=== PATIENT | male | born 1985 | race Caucasian/White ===

== ENCOUNTER 2023-08-24 10:10 | Outpatient (OUT) | payer MEDICARE, SELFPAY ==
[2023-08-24 10:57] LABS: Basophils Absolute Auto 0.1 10^3/uL (0.0-0.1); Basophils Percent Auto 1.5 % (0.2-2.0); Eosinophils Absolute Auto 0.4 10^3/uL (0.0-0.7); Eosinophils Percent Auto 6.1 % (0.9-7.0); Hematocrit 41.9 % (42.0-54.0); Hemoglobin 13.2 g/dL (14.0-18.0); Immature Granulocytes Abs Auto 0.03 10^3/uL (0.00-0.03); Immature Granulocytes Pct Auto 0.4 % (0.0-0.5); Lymphocytes Absolute Auto 1.5 10^3/uL (1.2-3.8); Lymphocytes Percent Auto 22.2 % (20.5-60.0); Mean Corpuscular HGB Conc 31.5 g/dL (29.9-35.2); Mean Corpuscular Hemoglobin 26.4 pg (25.9-34.0); Mean Corpuscular Volume 83.8 fL (80.0-94.0); Mean Platelet Volume 10.2 fL (9.5-13.5); Monocytes Absolute Auto 0.8 10^3/uL (0.3-0.8); Monocytes Percent Auto 11.9 % (1.7-12.0); Neutrophils Absolute Auto 3.9 10^3/uL (1.4-6.5); Neutrophils Percent Auto 57.9 % (43.0-75.0); Platelet Count 274 10^3/uL (150-450); White Blood Count 6.7 10^3/uL (4.0-11.0)
[2023-08-24 11:13] LABS: Anion Gap 11.5; BUN Creatinine Ratio 19.8; Calcium 8.7 mg/dL (8.5-10.1); Carbon Dioxide 28.2 mmol/L (21.0-32.0); Chloride 103 mmol/L (98-107); Estimated GFR (African America >60 (>=60); Estimated GFR (Non-African Ame >60 (>=60); Glucose 91 mg/dL (74-106); Potassium 3.7 mmol/L (3.5-5.1); Sodium 139 mmol/L (136-145)
== END 2023-08-24 10:11 | disposition home or self-care (01) ==
LOC: PST 10:14
PROVIDERS: Visit Provider Urology
DX: N35.812 Other bulbous urethral stricture, male (principal)
CPT/HCPCS: 36415; 80048; 85025

== ENCOUNTER 2023-09-02 11:36 | Day surgery (SDC) | payer MEDICARE, SELFPAY ==
[2023-08-24 10:39] VITALS: BP 122/80; PULSE 94; RESP 14; TEMP 36.2; O2SAT 100; BMI 19.2
[2023-09-02] VITALS (10 sets, daily range): BP systolic 110–134; BP diastolic 71–81; PULSE 57–90; RESP 7–18; TEMP 36.2–36.6; O2SAT 99–100
--- NOTE | 2023-09-02 12:16 | PC.NURSE ---
Took cota catheter out approximately 1 hour before arrival to hospital per Dr. Matias's instructions
[2023-09-02] MEDS: LACTATED RINGER'S SOLUTION 1,000 ML 50 ML IV (12:17)
[2023-09-02] MEDS: CEFAZOLIN SODIUM/DEXTROSE,ISO 2 GM/50 ML PIGGYBACK IV (12:47)
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
== END 2023-09-02 15:21 | disposition home or self-care (01) ==
PROVIDERS: Visit Provider Urology
PROC: (CPT 0499T; principal; 2023-09-02 12:30)
DX: N35.912 Unspecified bulbous urethral stricture, male (principal); G82.20 Paraplegia, unspecified; J45.909 Unspecified asthma, uncomplicated; F32.A Depression, unspecified; N52.9 Male erectile dysfunction, unspecified; N21.0 Calculus in bladder; Z87.440 Personal history of urinary (tract) infections; Z87.891 Personal history of nicotine dependence; Z99.3 Dependence on wheelchair; N31.9 Neuromuscular dysfunction of bladder, unspecified; N13.30 Unspecified hydronephrosis; N50.3 Cyst of epididymis; N32.89 Other specified disorders of bladder
CPT/HCPCS: 0499T; 52317; 36415; C1889; J2704

== ENCOUNTER 2025-04-24 14:04 | Outpatient (OUT) | payer MEDICARE, SELFPAY ==
[2025-04-24 14:31] LABS: Basophils Absolute Auto 0.1 10^3/uL (0.0-0.1); Basophils Percent Auto 0.8 % (0.2-2.0); Eosinophils Absolute Auto 0.2 10^3/uL (0.0-0.7); Eosinophils Percent Auto 2.3 % (0.9-7.0); Hematocrit 42.9 % (42.0-54.0); Immature Granulocytes Abs Auto 0.03 10^3/uL (0.00-0.03); Immature Granulocytes Pct Auto 0.5 % (0.0-0.5); Lymphocytes Absolute Auto 1.4 10^3/uL (1.2-3.8); Lymphocytes Percent Auto 21.2 % (20.5-60.0); Mean Corpuscular HGB Conc 32.6 g/dL (29.9-35.2); Mean Corpuscular Volume 82.7 fL (80.0-94.0); Mean Platelet Volume 9.4 fL (9.5-13.5); Monocytes Absolute Auto 0.7 10^3/uL (0.3-0.8); Neutrophils Absolute Auto 4.3 10^3/uL (1.4-6.5); Neutrophils Percent Auto 64.2 % (43.0-75.0); Platelet Count 407 10^3/uL (150-450); Red Blood Count 5.19 10^6/uL (4.70-6.10); Red Cell Distribution Width 13.4 % (11.0-15.0); White Blood Count 6.7 10^3/uL (4.0-11.0)
[2025-04-24 15:06] LABS: Alanine Aminotransferase 26 U/L (16-63); Albumin Globulin Ratio 0.7; Albumin Level 3.4 g/dL (3.4-5.0); Alkaline Phosphatase 86 U/L (46-116); Anion Gap 12.4; Aspartate Amino Transferase 12 U/L (15-37); BUN Creatinine Ratio 13.5; Bilirubin Total 0.3 mg/dL (0.2-1.0); Calcium 9.6 mg/dL (8.5-10.1); Carbon Dioxide 31.5 mmol/L (21.0-32.0); Chloride 102 mmol/L (98-107); Chol HDL Ratio 3.9; Cholesterol 202 mg/dL (<=200); Estimated GFR (African America >60 (>=60 mL/min/1.73m^2); Estimated GFR (Non-African Ame >60 (>=60 mL/min/1.73m^2); Globulin 4.6 g/dL; Glucose 97 mg/dL (74-106); HDL Cholesterol 52 mg/dL (40-60); Potassium 3.9 mmol/L (3.5-5.1); Sodium 142 mmol/L (136-145); Triglycerides 134 mg/dL (<=150); VLDL CHOLESTEROL 26.8 mg/dL
== END 2025-04-24 14:05 | disposition home or self-care (01) ==
LOC: LAB 14:10
PROVIDERS: PCP Nurse Practitioner Family; Visit Provider Nurse Practitioner Family
DX: Z00.00 Encounter for general adult medical examination without abnormal findings (principal); Z86.2 Personal history of diseases of the blood and blood-forming organs and certain disorders involving the immune mechanism; Z13.228 Encounter for screening for other metabolic disorders; Z83.3 Family history of diabetes mellitus; Z13.220 Encounter for screening for lipoid disorders; Z13.6 Encounter for screening for cardiovascular disorders
CPT/HCPCS: 36415; 80053; 80061; 85025

== ENCOUNTER 2025-04-29 07:56 | Outpatient (OUT) | payer MEDICARE, SELFPAY ==
--- NOTE | 2025-04-29 | US_ITS ---
The [address] [address] Patient Name: MAC MACHADO MRN: [id number] date: 1985 Sex: M Assigned Patient Location: US Current Patient Location: Accession/Order Number: [id number] Exam Date: 04/30/2025 09:24 Report Date: 04/30/2025 09:28 At the request of: PIPPA HELMS MD Procedure: US renal BI Bilateral Renal Ultrasound HISTORY: History of kidney stones. Right hydronephrosis COMPARISON: 04/08/2023 RIGHT kidney measures 11.3 cm. LEFT kidney measures 11.7 cm. Hydronephrosis: Marked right hydronephrosis identified. The AP measurement of the renal pelvis 4.2 cm No left hydronephrosis. RENAL STONE: No shadowing renal calculus is seen. RENAL LESIONS: No renal lesion identified. URINARY BLADDER: Camp catheter in urinary bladder. REPRODUCTIVE STRUCTURES Not assessed IMPRESSION : Marked right hydronephrosis. Impression dictated by: Josh Kim M.D. 04/30/2025 9:28 AM Dictation Location: [facility] Electronically authenticated by: [id number] Y Date: 04/30/2025 09:28
== END 2025-04-29 07:57 | disposition home or self-care (01) ==
LOC: US 07:56
PROVIDERS: PCP Nurse Practitioner Family; Visit Provider Urology
DX: N13.30 Unspecified hydronephrosis (principal)
CPT/HCPCS: 76775

== ENCOUNTER 2025-05-10 13:38 | Outpatient (OUT) | payer MEDICARE, SELFPAY ==
--- OUTSIDE RECORDS SUMMARY | 2025-05-10 13:40 | XMS_ITS | Clinical Summary ---
Author Organization [facility] Address [address] [place] [address] Care Team Providers Care Bushel Girl Name Role Phone Unavailable Primary Care Provider Unavailabl e Allergies No known active allergies Medications No known medications Active Problems Problem Noted Date Diagnosed Date Paraplegia 11/30/2022 Hypokalemia 11/30/2022 Chronic indwelling Camp catheter 11/30/2022 Camp catheter problem, sequela 11/30/2022 Status post incision and drainage 11/30/2022 Scrotal abscess 11/29/2022 Social History Tobacco Use Types Packs/Day Years Used Date Smoking Tobacco: Never Assessed Sex and Gender Information Value Date Recorded Sex Assigned at Not on file Legal Sex Male 7:52 PM EST Gender Identity Not on file Sexual Orientation Not on file Last Filed Vital Signs Vital Sign Reading Time Taken Comments Blood Pressure 125/72 12/01/2022 8:00 AM EST Pulse 82 12/01/2022 8:04 AM EST Temperature 36.5 C (97.7 F) 12/01/2022 8:00 AM EST Respiratory Rate 11 12/01/2022 8:04 AM EST Oxygen Saturation 97% 12/01/2022 3:43 AM EST Inhaled Oxygen Concentration - - Weight 68.9 kg (152 lb) 11/30/2022 5:01 AM EST Height 188 cm (6' 2 ) 11/29/2022 6:11 AM EST Body Mass Index 19.52 11/29/2022 6:11 AM EST Plan of Treatment Health Maintenance Due Date Last Done Comments Depression Screen 1995 Varicella vaccine (1 of 2 - 13+ 2-dose series) 1996 HIV screen 1998 Hepatitis C screen 2001 DTaP/Tdap/Td vaccine (1 - Tdap) 2002 Hepatitis B vaccine (1 of 3 - 19+ 3-dose series) 2002 Lipids 2023 Annual Wellness Visit (Medicare) 10/19/2023 COVID-19 Vaccine ( - 2023-2 5 season) 2024 Flu vaccine (Season Ended) 2025 HPV vaccine Aged Out No longer eligi ble based on patient's age to complete this topic Hepatitis A vaccine Aged Out No longe r eligible based on patient's age to complete this topic Hib vaccine Aged Out No longer eligi ble based on patient's age to complete this topic Meningococcal (ACWY) vaccine Aged Out No longer eligible based on patient's age to complete this topic Meningococcal B vaccine Aged Out No l onger eligible based on patient's age to complete this topic Pneumococcal 0-49 years Vaccine Aged Out No longer eligible based on patient's age to complete this topic Polio vaccine Aged Out No longer elig ible based on patient's age to complete this topic Insurance MEDICARE Advance Directives * Full Code (Latest Code Status on File) Date Activated Date Inactivated Comments 11/29/2022 8:39 AM 12/01/2022 8:58 PM
--- NOTE | 2025-05-10 13:41 | CT_ITS ---
The [address] [address] Patient Name: MAC MACHADO MRN: [id number] date: 1985 Sex: M Assigned Patient Location: CT Current Patient Location: CT Accession/Order Number: [id number] Exam Date: 05/10/2025 14:37 Report Date: 05/10/2025 14:40 At the request of: PIPPA HELMS MD Procedure: CT abdomen pelvis wo con CT ABDOMEN AND PELVIS WITHOUT INTRAVENOUS CONTRAST: CLINICAL HISTORY: Follow-up hydronephrosis. COMPARISON: CT abdomen and pelvis 11/29/2022 TECHNIQUE: Spiral images were obtained through the abdomen and pelvis without intravenous contrast. This CT exam was performed using one or more following dose reduction techniques: Automated exposure control, adjustment of the mA and/or kV according to patient size, or use of iterative reconstruction technique. FINDINGS: Lung Bases: [Mild lung scarring.] Organs:Suboptimal evaluation due to lack of IV contrast. Liver gallbladder spleen pancreas and adrenal glands all appear unremarkable. Left kidney appears unremarkable. Severe hydronephrosis and hydroureter involving the right kidney similar configuration to the prior study. GI: Stomach is grossly unremarkable. Small bowel appears nondilated. No acute colonic abnormality.[ Pelvis:[Large urinary bladder calculus with surrounding air similar to the prior study. Prostate gland is normal in size.] Peritoneum/Retroperitoneum:No free air or free fluid or lymphadenopathy.[ Abd wall/Bones:Abdominal wall demonstrate no acute findings. Osseous structures demonstrate degenerative changes. Grade 1 spinal listhesis of L5 on S1 due to bilateral pars defects.[ CT/CT abdomen pelvis wo con IMPRESSION: Severe right-sided hydronephrosis and hydroureter with a large urinary bladder calculus similar in configuration to the prior study. Air is seen within urinary bladder lumen. Underlying cystitis cannot BE excluded. Impression dictated by: Jono Martinez Jr., D.O. 05/10/2025 2:40 PM Dictation Location: [place] [address] Electronically authenticated by: [id number] Y Date: 05/10/2025 14:40
== END 2025-05-10 13:39 | disposition home or self-care (01) ==
LOC: CT 13:38
PROVIDERS: PCP Nurse Practitioner Family; Visit Provider Urology
DX: N13.30 Unspecified hydronephrosis (principal); N21.0 Calculus in bladder
CPT/HCPCS: 74176

== ENCOUNTER 2025-05-18 09:02 | Outpatient (OUT) | payer MEDICARE, SELFPAY ==
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
[2025-05-18 10:05] LABS: Basophils Absolute Auto 0.1 10^3/uL (0.0-0.1); Basophils Percent Auto 0.7 % (0.2-2.0); Eosinophils Absolute Auto 0.4 10^3/uL (0.0-0.7); Eosinophils Percent Auto 4.7 % (0.9-7.0); Hematocrit 40.7 % (42.0-54.0); Immature Granulocytes Abs Auto 0.04 10^3/uL (0.00-0.03); Immature Granulocytes Pct Auto 0.5 % (0.0-0.5); Lymphocytes Absolute Auto 1.4 10^3/uL (1.2-3.8); Mean Corpuscular HGB Conc 31.9 g/dL (29.9-35.2); Mean Corpuscular Hemoglobin 26.1 pg (25.9-34.0); Mean Corpuscular Volume 81.7 fL (80.0-94.0); Mean Platelet Volume 10.2 fL (9.5-13.5); Monocytes Absolute Auto 0.7 10^3/uL (0.3-0.8); Monocytes Percent Auto 9.6 % (1.7-12.0); Neutrophils Percent Auto 65.5 % (43.0-75.0); Platelet Count 350 10^3/uL (150-450); Red Blood Count 4.98 10^6/uL (4.70-6.10); Red Cell Distribution Width 13.7 % (11.0-15.0); White Blood Count 7.6 10^3/uL (4.0-11.0)
[2025-05-18 10:14] LABS: INR 1.02; Partial Thromboplastin Time 31.9 sec (22.3-36.2); Prothrombin Time 10.8 sec (9.0-11.6)
[2025-05-18 10:21] LABS: Anion Gap 9.3; BUN Creatinine Ratio 22.6; Calcium 9.2 mg/dL (8.5-10.1); Chloride 104 mmol/L (98-107); Estimated GFR (African America >60 (>=60 mL/min/1.73m^2); Estimated GFR (Non-African Ame >60 (>=60 mL/min/1.73m^2); Glucose 102 mg/dL (74-106); Potassium 4.3 mmol/L (3.5-5.1); Sodium 141 mmol/L (136-145)
== END 2025-05-18 09:03 | disposition home or self-care (01) ==
LOC: PST 09:03
PROVIDERS: PCP Nurse Practitioner Family; Visit Provider Urology
DX: Z01.812 Encounter for preprocedural laboratory examination (principal); Z01.818 Encounter for other preprocedural examination; N21.0 Calculus in bladder; N13.30 Unspecified hydronephrosis; N31.9 Neuromuscular dysfunction of bladder, unspecified
CPT/HCPCS: 80048; 85025; 85610; 85730; 87086; 87088; 87186; G0463

== ENCOUNTER 2025-07-15 21:25 | Emergency (ER) | payer MEDICARE, SELFPAY ==
[2025-07-15 21:35] VITALS: BP 98/75; PULSE 116; TEMP 37.9; O2SAT 99; BMI 19.3
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
[2025-07-15 22:18] LABS: Hematocrit 46.0 % (42.0-54.0); Hemoglobin 14.8 g/dL (14.0-18.0); Immature Granulocytes Abs Auto 0.03 10^3/uL (0.00-0.03); Immature Granulocytes Pct Auto 0.2 % (0.0-0.5); Lymphocytes Absolute Auto 1.0 10^3/uL (1.2-3.8); Mean Corpuscular HGB Conc 32.2 g/dL (29.9-35.2); Mean Corpuscular Hemoglobin 25.7 pg (25.9-34.0); Mean Corpuscular Volume 79.9 fL (80.0-94.0); Platelet Count 265 10^3/uL (150-450); Red Blood Count 5.76 10^6/uL (4.70-6.10); White Blood Count 12.4 10^3/uL (4.0-11.0)
[2025-07-15 22:25] LABS: Glucose Urine UA NEGATIVE (NEGATIVE)
[2025-07-15 22:27] LABS: Cast Seen? NONE SEEN #/LPF (NONE SEEN); Crystals Seen? None Seen #/HPF (None Seen); Urine Culture Indicated YES-FRMC
--- NOTE | 2025-07-15 22:30 | PC.NURSE ---
Swelling to left testicle, slight redness, no open areas noted, no seeping at site. Camp catheter patent and draining dark foul smelling urine.
[2025-07-15] MEDS: 0.9 % SODIUM CHLORIDE 1,000 ML 999 ML IV (22:32)
[2025-07-15 22:37] LABS: Lactate/Lactic Acid 1.3 mmol/L (0.4-2.0)
[2025-07-15 22:41] LABS: Alanine Aminotransferase 24 U/L (16-63); Albumin Globulin Ratio 0.9; Albumin Level 4.0 g/dL (3.4-5.0); Alkaline Phosphatase 96 U/L (46-116); Anion Gap 8.4; Aspartate Amino Transferase 12 U/L (15-37); Blood Urea Nitrogen 20.0 mg/dL (7.0-18.0); Calcium 9.1 mg/dL (8.5-10.1); Carbon Dioxide 31.3 mmol/L (21.0-32.0); Chloride 101 mmol/L (98-107); Estimated GFR (African America >60 (>=60 mL/min/1.73m^2); Estimated GFR (Non-African Ame >60 (>=60 mL/min/1.73m^2); Globulin 4.5 g/dL; Glucose 90 mg/dL (74-106); Potassium 3.7 mmol/L (3.5-5.1); Sodium 137 mmol/L (136-145); Total Protein 8.5 g/dL (6.4-8.2)
[2025-07-16] MEDS: CIPROFLOXACIN HCL 500 MG TABLET PO (00:38)
== END 2025-07-16 01:30 | disposition home or self-care (01) ==
PROVIDERS: Emergency Provider Internal Medicine; PCP Nurse Practitioner Family
DX: N45.1 Epididymitis (principal); Z99.3 Dependence on wheelchair; Z87.891 Personal history of nicotine dependence; R50.9 Fever, unspecified; G82.20 Paraplegia, unspecified
CPT/HCPCS: 36415; 76870; 80053; 81001; 83605; 85025; 87086; 87088; 87186; 93976; 99285

== ENCOUNTER 2025-09-25 11:13 | Outpatient (OUT) | payer MEDICARE, SELFPAY ==
--- OUTSIDE RECORDS SUMMARY | 2025-09-25 11:17 | XMS_ITS | Clinical Summary ---
Author Organization [facility] Address [address] [place] [address] Care Team Providers Care Referral And Information Aide Name Role Phone Unavailable Primary Care Provider Unavailabl e Social History Tobacco UseTypesPacks/DayYears UsedDateSmoking Tobacco: Never AssessedSex and Gender InformationValueDate RecordedSex Assigned at BirthNot on fileLegal Sex Male02/04/2023 7:00 PM EDTGender IdentityNot on fileSexual OrientationNot on file Plan of Treatment Not on file Insurance
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
[2025-09-25 11:48] LABS: Hematocrit 43.8 % (42.0-54.0); Hemoglobin 14.0 g/dL (14.0-18.0); Immature Granulocytes Abs Auto 0.01 10^3/uL (0.00-0.03); Immature Granulocytes Pct Auto 0.2 % (0.0-0.5); Lymphocytes Absolute Auto 1.3 10^3/uL (1.2-3.8); Mean Corpuscular HGB Conc 32.0 g/dL (29.9-35.2); Mean Corpuscular Hemoglobin 26.2 pg (25.9-34.0); Mean Corpuscular Volume 82.0 fL (80.0-94.0); Platelet Count 256 10^3/uL (150-450); Red Blood Count 5.34 10^6/uL (4.70-6.10); White Blood Count 5.4 10^3/uL (4.0-11.0)
[2025-09-25 12:11] LABS: Anion Gap 9.3; Blood Urea Nitrogen 15.0 mg/dL (7.0-18.0); Calcium 9.2 mg/dL (8.5-10.1); Carbon Dioxide 31.1 mmol/L (21.0-32.0); Chloride 104 mmol/L (98-107); Estimated GFR (African America >60 (>=60 mL/min/1.73m^2); Estimated GFR (Non-African Ame >60 (>=60 mL/min/1.73m^2); Glucose 101 mg/dL (74-106); Potassium 4.4 mmol/L (3.5-5.1); Sodium 140 mmol/L (136-145)
[2025-09-25 12:50] LABS: Glucose Urine UA NEGATIVE (NEGATIVE)
[2025-09-25 12:54] LABS: INR 1.02; Partial Thromboplastin Time 29.3 sec (22.3-36.2); Prothrombin Time 10.8 sec (9.0-11.6)
[2025-09-25 13:07] LABS: Cast Seen? NONE SEEN #/LPF (NONE SEEN); Crystals Seen? Seen #/HPF (None Seen); Urine Culture Indicated YES-FRMC
== END 2025-09-25 11:14 | disposition home or self-care (01) ==
PROVIDERS: PCP Nurse Practitioner Family; Visit Provider Urology
DX: Z01.812 Encounter for preprocedural laboratory examination (principal); Z01.818 Encounter for other preprocedural examination; N13.30 Unspecified hydronephrosis; N20.0 Calculus of kidney; N31.9 Neuromuscular dysfunction of bladder, unspecified; N35.812 Other bulbous urethral stricture, male
CPT/HCPCS: 36415; 80048; 81001; 85025; 85610; 85730; 87086; 87088; 87186; G0463

== ENCOUNTER 2025-10-11 12:31 | Day surgery (SDC) | payer MEDICARE, SELFPAY ==
[2025-09-25 11:36] VITALS: BP 138/92; PULSE 74; TEMP 36.3; O2SAT 98; BMI 19.2
--- OUTSIDE RECORDS SUMMARY | 2025-09-26 19:36 | XMS_ITS | Continuity of Care Document ---
Author Organization [facility] Address [address] [place] [address] Phone Care Team Providers Care Cigarette Inspector Name Role Phone Boni Dempsey MD Attending Provider [phone] Rere Perez CMA Attending Provider Martha Parry APRN Primary Care Provider Karen Matias MD Attending Provider Care Teams Visit Care Team Team Status: Active Member Role/Relationship Status Dates Boni Dempsey MD Attending Provider Active St art: July 15, 2025 Visit Care Team Team Status: Active Member Role/Relationship Status Dates Rere Perez CMA Attending Provider Active Start: July 17, 2025 Visit Care Team Team Status: Inactive Member Role/Relationship Status Dates Martha Parker APRN [employer] WORKER-C Primary Care Provider Active Start: August 28, 2025 End: August 28, 2025Espinoza Peters ProviderActiveStart: August 28, 2025 End: August 28, 2025 Patient Care Team Team Status: Active Member Role/Relationship Status Dates Martha Parker APRN [employer] WORKER-C Primary Care Provider Active Start: September Espinoza Peters ProviderActiveStart: September 25, 2025 Patient Care Team Team Status: Inactive Member Role/Relationship Status Dates Karen Matias MD Attending Provider Active Start : September 25, 2025 End: September 25, 2025 Chief Complaint and Reason for Visit Chief Complaint Admit Date Amb Documentation July 17, 2025 2: 12pm N13.30 August 28, 2025 10 :56am Unknown September 25, 2025 1 1:36am Allergies, Adverse Reactions, Alerts Allergen Type Severity Reaction Last Updated Verified Status No Known Allergies Allergy Unknown April 24, 2025 12:04pmYesActive Social History Smoking Status Status Start Date End Date Date of Observa tion Ex-smoker (finding) April 24, 2025 3:52pm Observation Status Observation Response Date of Response Legal Sex Male (finding) Sex Assigned At BirthMaleMay 1984 Family History Relationship Condition Age at Onset Recorded Date/T bruce father Cerebrovascular accident (CVA) Unknown Type 2 diabetes mellitusUnknownMyocardial infarctionUnknownfatherDiabetes mellitusUnknownDeceasedUnknown Problems Active Problems Problem Diagnosis/Recorded Date Onset Date Stat us Medicare annual wellness visit, subsequent April 24 12:27pm Unknown Active Paraplegia February 17, 2023 1:09pm Unknown Acti ve Neurogenic bladder February 17, 2023 1:09pm Unknown Active Family history of diabetes mellitus (DM) April 24 12:28pm Unknown Active Encounter for lipid screenin g for cardiovascular disease April 24, 2025 12:29pm Unknown Active Screening for metabolic disorder April 24, 2025 12:27p m Unknown Active Medications Medication Status Dose Units Route Directions Qty Days Refills S tart Date Stop Date End Date Reason(s) Instructions Adherence Coenzyme Q10 (Co Q-10) 100 mg Capsule Discontinued 200 MG PO Daily at bedtime February 16, 2023 11:00pmApril 24, 2025 12:10pmTadalafil (Cialis) 20 mg Tablet Xbrxbqigbsai77PPLNUzecnXhwix 2022 11:00pmApril 24, 2025 12:10pmOmega 2-Wri-Vdo-Fish Oil (Fish Oil) 1,000 mg (120 mg-180 mg) NapzqjsQrhlwujsmezl9YNGRO Daily at bedtimeTrihealth [facility] 2022 11:00pmApril 24, 2025 12:10pmStone Free Owmruzonmopl9NIOEDGnqem dailyM[facility]ow[facility]2022 11:00pmApril 24, 2025 12:10pm Oxybutynin Chloride 5 mg xtgmmrXfltejwdzpnj9WCQWWsozn times daily as needed for bladder oncdjv711Sbkcg 2022 11:00pmApril 24, 2025 12:10pmNo Name (No Known Home Meds)[facility] 11:00pm Procedures Procedure Date Performed Status US renal BI August 28, 2025 9:59am complet ed Urine Culture September 25, 2025 active Relevant Diagnostic Tests and/or Laboratory Data Laboratory Results Test Collection Date/Time Result Date/Time Result Interpretation Reference Range Result Comment Performing Site Basophils # (Auto) July 15, 2025 8:45pm June 8:45pm 0.1 10 3/uL 0.0-0.1Anion GapAugust 2024 8:45pmAugust 2024 8:45pm8.4Lactic Acid LevelAugust 2024 8:45pmAugust 2024 8:45pm1.3 mmol/L0.4-2.0Urine Culture ReflexedAugust 2024 9:00pmYES-FRMCActivated Partial Thromboplast TimeNov2024 11:35amNovember 2024 11:35am29.3 sec22.3-36.2 Prothromb Time International RatioN2024 11:35amNovember 2024 11:35am1.02DESIRED INR:2.0-3.0 CONDITIONS NOT LISTED BELOW2.5-3.5 FOR PROSTHETIC HEART VALVE REPLACEMENT2.5-3.5 RECURRENT THROMBOSISBasophils # (Auto)September 25, 2025 11:35amNovemb2024 11:35am0.1 10 3/uL0.0-0.1Anion GapSeptember 25, 2025 11:35amNovember 2024 11:35am9.3Urine Culture ReflexedSeptember 25, 2025 11:36amNovember 2024 11:36amYES-FRMCUrine Microscopic Review September 25, 2025 11:36amYESBasophils (%) (Auto)July 15, 2025 8:45pmAugust 2024 8:45pm0.4 %0.2-2.0Albumin/Globulin RatioAugust 2024 8:45pm July 15, 2025 8:45pm0.9Urine Other CastsAugust 2024 9:00pmNONE SEEN #/LPFNONE SEENProthrombin TimeNovember 3rd, 2025 11:35amNove2024 11:35am10.8 sec9.0-11.6Basophils (%) (Auto)September 25, 2025 11:35amNovemb2024 11:35am1.1 %0.2-2.0BUN/Creatinine RatioNove2024 11:35am September 25, 2025 11:35am16.0Urine Other CastsSeptember 25, 2025 11:36am September 25, 2025 11:36amNONE SEEN #/LPFNONE SEENUrine BilirubinSeptember 25, 2025 11:36amNEGATIVENEGATIVEEosinophils # (Auto)July 15, 2025 8:45pmAugust 2024 8:45pm0.1 10 3/uL0.0-0.7AlbuminAugust 2024 8:45pmAugust 2024 8:45pm4.0 g/dL3.4-5.0Urine Other CrystalsAugust 2024 9:00pmNone Seen #/HPFNone SeenEosinophils # (Auto)September 25, 2025 11:35amNove2024 11:35am0.3 10 3/uL0.0-0.7Blood Urea NitrogenSeptember 25, 2025 11:35amNovemb2024 11:35am15.0 mg/dL7.0-18.0Urine Other CrystalsSeptember 25, 2025 11:36amNovemb2024 11:36amSeen #/HPFAbnormal (applies to non-numeric results)None SeenUrine Occult BloodSeptember 25, 2025 11:36amLARGEAbnormal (applies to non-numeric results)NEGATIVEEosinophils (%) (Auto)July 15, 2025 8:45pmAugust 2024 8:45pm0.6 %Below low normal0.9-7.0Alkaline Phosphatase July 15, 2025 8:45pmAugust 2024 8:45pm96 U/X34-173Hdmes BacteriaAugust 2024 9:00pmLARGE #/HPFAbnormal (applies to non-numeric results)NONE SEEN Eosinophils (%) (Auto)September 25, 2025 11:35amNovember 2024 11:35am6.4 % 0.9-7.0Calcium LevelNov2024 11:35amNovember 2024 11:35am9.2 mg/dL8.5-10.1Urine Amorphous SedimentNov2024 11:36amNovember 2024 11:36amMODERATEUrine AppearanceSeptember 25, 2025 11:36amCLEARCLEAR HematocritAugust 2024 8:45pmAugust 2024 8:45pm46.0 %42.0-54.0Alanine Aminotransferase (ALT/SGPT)July 15, 2025 8:45pmAugust 2024 8:45pm24 U/N37-29Olbef BilirubinAugust 2024 9:00pmNEGATIVENEGATIVEHematocrit September 25, 2025 11:35amNovemb2024 11:35am43.8 %42.0-54.0Chloride LevelNov2024 11:35amNovemb2024 11:68da017 mmol/L54-205Xyzjm BacteriaNov2024 11:36amNovemb2024 11:36amLARGE #/HPFAbnormal (applies to non-numeric results)NONE SEENUrine ColorNov2024 11:36am LT. YELLOWYELLOWHemoglobinAugust 2024 8:45pmAugust 2024 8:45pm14.8 g/dL14.0-18.0Aspartate Amino Transf (AST/SGOT)July 15, 2025 8:45pmAugust 2024 8:45pm12 U/LBelow low kzljhi88-60Qcbyp Occult BloodAugust 2024 9:00pmLARGEAbnormal (applies to non-numeric results)NEGATIVEHemoglobinNov2024 11:35amNovemb2024 11:35am14.0 g/dL14.0-18.0Carbon Dioxide LevelNov2024 11:35amNovember 2024 11:35am31.1 mmol/L21.0-32.0 Urine MucusNov2024 11:36amNovemb2024 11:36amNONE SEENNONE SEENUrine Glucose (UA)September 25, 2025 11:36amNEGATIVE mg/dLNEGATIVEImmature Granulocyte # (Auto)July 15, 2025 8:45pmAugust 2024 8:45pm0.03 10 3/uL 0.00-0.03BUN/Creatinine RatioAugust 2024 8:45pmAugust 2024 8:45pm 17.5Urine AppearanceAugus2024 9:00pmCLOUDYAbnormal (applies to non- numeric results)CLEARImmature Granulocyte # (Auto)September 25, 2025 11:35am September 25, 2025 11:35am0.01 10 3/uL0.00-0.03CreatinineSeptember 25, 2025 11:35amNovemb2024 11:35am0.94 mg/dL0.70-1.30Urine RBCNov2024 11:36amNove2024 11:47ch5-88 #/HPFAbnormal (applies to non-numeric results)0-2Urine KetonesNov2024 11:36amNEGATIVE mg/dLNEGATIVEImmature Granulocyte % (Auto)July 15, 2025 8:45pmAugust 2024 8:45pm0.2 %0.0-0.5 Blood Urea NitrogenAugust 2024 8:45pmAugust 2024 8:45pm20.0 mg/dL Above high normal7.0-18.0Urine ColorAugust 2024 9:00pmYELLOWYELLOWImmature Granulocyte % (Auto)September 25, 2025 11:35amNovemb2024 11:35am0.2 % 0.0-0.5Estimated GFR ()September 25, 2025 11:35amNove2024 11:35am>60>=60 mL/min/1.73m 2Urine Squamous Epithelial CellsNovember 2024 11:36amNovemb2024 11:36amRARE #/LPFNONE/RAREUrine Leukocyte EsteraseNovember 2024 11:36amSMALLAbnormal (applies to non-numeric results) NEGATIVELymphocytes # (Auto)July 15, 2025 8:45pmAugust 2024 8:45pm1.0 10 3/uLBelow low normal1.2-3.8Calcium LevelAugust 2024 8:45pmAugust 2024 8:45pm9.1 mg/dL8.5-10.1Urine Glucose (UA)July 15, 2025 9:00pmNEGATIVE mg/dLNEGATIVELymphocytes # (Auto)September 25, 2025 11:35amNovemb2024 11:35am1.3 10 3/uL1.2-3.8Estimated GFR (Non- AmericanNovember 2024 11:35amNovemb2024 11:35am>60>=60 mL/min/1.73m 2Urine WBCNov2024 11:36amNove2024 11:57dj94-05 #/HPFAbnormal (applies to non- numeric results)NONE SEENUrine NitriteNov2024 11:36amPOSITIVEAbnormal (applies to non-numeric results)NEGATIVELymphocytes (%) (Auto)July 15, 2025 8:45pmAugust 2024 8:45pm7.6 %Below low iugelj43.5-60.0Chloride LevelAugust 2024 8:45pmAugust 2024 8:86mx044 mmol/S68-516Vutrm KetonesAugust 2024 9:00pmTRACE mg/dLAbnormal (applies to non-numeric results)NEGATIVE Lymphocytes (%) (Auto)September 25, 2025 11:35amNovemb2024 11:35am23.4 % 20.5-60.0Glucose LevelNov 2025 11:35amNovember 2024 11:72hg688 mg/xO50-349Kplzv pHNov2024 11:36am8.55.0-9.0Mean Corpuscular HemoglobinAugust 2024 8:45pmAugust 2024 8:45pm25.7 pgBelow low rggohn78.9-34.0Carbon Dioxide LevelAugust 2024 8:45pmAugust 2024 8:45pm31.3 mmol/L21.0-32.0Urine Leukocyte EsteraseAugust 2024 9:00pmLARGE Abnormal (applies to non-numeric results)NEGATIVEMean Corpuscular Hemoglobin September 25, 2025 11:35amNovemb2024 11:35am26.2 pg25.9-34.0Potassium LevelNov2024 11:35amNovemb2024 11:35am4.4 mmol/L3.5-5.1Urine ProteinNov2024 11:38iz894 mg/dLAbnormal (applies to non-numeric results)NEG/TRACEMean Corpuscular Hemoglobin ConcentAugust 2024 8:45pm July 15, 2025 8:45pm32.2 g/dL29.9-35.2CreatinineAugust 2024 8:45pm July 15, 2025 8:45pm1.14 mg/dL0.70-1.30Urine MucusAugust 2024 9:00pm NONE SEENNONE SEENMean Corpuscular Hemoglobin ConcentNov2024 11:35am September 25, 2025 11:35am32.0 g/dL29.9-35.2Sodium LevelNov2024 11:35amNovemb2024 11:04vk710 mmol/I722-069Rrwhx Specific GravityNov2024 11:36am1.0201.005-1.025Mean Corpuscular VolumeAugust 2024 8:45pm July 15, 2025 8:45pm79.9 fLBelow low optqmg96.0-94.0Estimated GFR ()July 15, 2025 8:45pmAugust 2024 8:45pm>60>=60 mL/min/1.73m 2 Urine NitriteAugust 2024 9:00pmNEGATIVENEGATIVEMean Corpuscular Volume September 25, 2025 11:35amNovember 2024 11:35am82.0 fL80.0-94.0Urine UrobilinogenNov2024 11:36am0.2 EU/dL0.2-1.0Monocytes # (Auto)July 15, 2025 8:45pmAugust 2024 8:45pm1.3 10 3/uLAbove high normal0.3-0.8 Estimated GFR (Non- AmericanAugust 2024 8:45pmAugust 2024 8:45pm>60>=60 mL/min/1.73m 2Urine pHAugust 2024 9:00pm8.55.0-9.0Monocytes # (Auto)September 25, 2025 11:35amNovember 2024 11:35am0.5 10 3/uL0.3-0.8 Monocytes (%) (Auto)July 15, 2025 8:45pmAugust 2024 8:45pm10.2 % 1.7-12.0GlobulinAugust 2024 8:45pmAugust 2024 8:45pm4.5 g/dLUrine ProteinAugust 2024 9:88fi169 mg/dLAbnormal (applies to non-numeric results)NEG/TRACEMonocytes (%) (Auto)September 25, 2025 11:35amNovember 2024 11:35am9.7 %1.7-12.0Mean Platelet VolumeAugust 2024 8:45pmAugust 2024 8:45pm10.5 fL9.5-13.5Glucose LevelAugust 2024 8:45pmAugust 2024 8:45pm90 mg/tL91-284Oesqu RBCAugust 2024 9:57ej37-79 #/HPF Abnormal (applies to non-numeric results)0-2Mean Platelet VolumeNov2024 11:35amNovember 2024 11:35am9.6 fL9.5-13.5Neutrophils # (Auto)July 15, 2025 8:45pmAugust 2024 8:45pm10.1 10 3/uLAbove high normal1.4-6.5 Potassium LevelAugust 2024 8:45pmAugust 2024 8:45pm3.7 mmol/L3.5-5.1 Urine Specific GravityAugust 2024 9:00pm1.0101.005-1.025Neutrophils # (Auto)September 25, 2025 11:35amNovember 2024 11:35am3.2 10 3/uL1.4-6.5 Neutrophils (%) (Auto)July 15, 2025 8:45pmAugust 2024 8:45pm81.0 % Above high pcwijy57.0-75.0Sodium LevelAugust 2024 8:45pmAugust 2024 8:60pu638 mmol/E668-843Mmore Squamous Epithelial CellsAugust 2024 9:00pm NONE SEEN #/LPFNONE/RARENeutrophils (%) (Auto)September 25, 2025 11:35amNovember 2024 11:35am59.2 %43.0-75.0Platelet CountAugust 2024 8:45pmAugust 2024 8:54kz881 10 3/tF012-397Ilnou BilirubinAugust 2024 8:45pmAugust 2024 8:45pm0.5 mg/dL0.2-1.0Urine UrobilinogenAugust 2024 9:00pm1.0 EU/dL0.2-1.0Platelet CountNovember 2024 11:35amNovember 2024 11:35am 256 10 3/uU585-722Kkt Blood CountAugust 2024 8:45pmAugust 2024 8:45pm5.76 10 6/uL4.70-6.10Total ProteinAugust 2024 8:45pmAugust 2024 8:45pm8.5 g/dLAbove high normal6.4-8.2Urine WBCAugust 2024 9:00pm>100 #/HPFAbnormal (applies to non-numeric results)NONE SEENRed Blood CountNov2024 11:35amNovember 2024 11:35am5.34 10 6/uL4.70-6.10Red Cell Distribution WidthAugust 2024 8:45pmAugust 2024 8:45pm16.1 %Above high .0-15.0Red Cell Distribution WidthNov2024 11:35am September 25, 2025 11:35am15.7 %Above high cqdomd91.0-15.0Corrected White Blood CountAugust 2024 8:45pmAugust 2024 8:45pm12.4 10 3/uLAbove high normal4.0-11.0Corrected White Blood CountNov2024 11:35amNovember 2024 11:35am5.4 10 3/uL4.0-11.0 Diagnostic Imaging Reports Author Jono Martinez [facility] HospitalAuthoredOctober 2024 3:16pmReportDictated Date/TimeDictated ByStatusRadiology ReportOctober 2024 3:16pmJosehalina Martinez Jr DOcomplete[facility] [place] [address] Ultrasound Report Signed Patient: Pawel Ken MR#: [id number] : 1985 Acct:[id number] Age/Sex: 40 / M ADM Date: 5 Loc: UL Room: Type: [facility] Attending Dr: Karen Matisa MD Ordering Provider: Karen Matias MD Date of Service: 08/28/25 US/US renal BI: N13.30 Copies to: Karen Matias MD~ BILATERAL RENAL AND BLADDER ULTRASOUND CLINICAL HISTORY: History of bladder stone. COMPARISON: None FINDINGS: Estimation of renal size is approximately 10.32 cm on the right and 11.85 cm on the left. Bilateral nephrolithiasis largest now measuring 3 mm involving the right kidney. Moderate right-sided hydronephrosis and proximal hydroureter. No left-sided hydronephrosis is seen. The urinary bladder is decompressed by Camp. US/US renal BI IMPRESSION: BILATERAL NEPHROLITHIASIS WITH MODERATE RIGHT-SIDED HYDRONEPHROSIS. Impression dictated by: Jono Martinez Jr., D.OLizy 08/28/2025 3:17 PM Dictation Location: [place] [address] Tech: Cindysole Baker Transcribed By: PWS 08/28/251516 Dictated By: Jono Martinez Jr, DO 08/28/25 151 Signed By: <Electronically signed by Jono Martinez Jr, DO in OV> 08/28/25 1517 Advance Directives Advance Directive Response Recorded Date/ Time Advance Directives No February 16 023 9:02am Insurance Providers Guarantor Pawel Cait Ken Address [address] [place], [place] [id number] Info.Home Phone: Payer Group Member ID Coverage Type Subscriber Relationship to Subscriber Effective Date Expiration Date Medicaid [id number] C Ken Id: [id number] [address] [place] [phone] Home Phone: [facility] [id number] C Ken Id: [id number] [address] [place] [phone] Home Phone: [facility] [id number] 2022 Encounters Encounter Location(s) Arrival/Admit Date Discharge/Departure Date Discharge/Departure Disposition Provider(s) Non-patient / Non-visit -[facility] [place] panda 2024 10:00pm Daniel [facility] 2:12pmihai Perez CMADeparted Clinical-Ultrasound [facility] 2024 10:56amOctober 2024 10:57amDischarged to home care or self care (routine discharge)Joe Driscoll-patient / Nhq-sryep-[place] [facility] 2024 11:35amJoe Driscoll MDDeparted Referred-LAB Path [facility] 2024 11:36am[facility] 2024 11:37am Discharged to home care or self care (routine discharge)Joe Driscoll MD Plan of Treatment Future Tests Future scheduled test information is unavailable Pending Tests Test Name Ordered Date Scheduled Date Urine Culture September 25, 2025 11:36am Future Visits Future appointment information is unavailable Future Procedures Procedure Name Ordered Date Scheduled Date Urine Culture September 26, 2025 12:54pm Novem melinda 2024 11:36am Future Medications Future medication information is unavailable Patient Instructions Patient instructions are unavailable
[2025-10-11] VITALS (11 sets, daily range): BP systolic 120–150; BP diastolic 76–113; PULSE 61–80; TEMP 36.3–36.5; O2SAT 18–100; BMI 19.2
--- OUTSIDE RECORDS SUMMARY | 2025-10-11 12:36 | XMS_ITS | Clinical Summary ---
Author Organization [facility] Address [address] [place] [address] Care Team Providers Care Fairing Worker Name Role Phone Unavailable Primary Care Provider Unavailabl e Social History Tobacco UseTypesPacks/DayYears UsedDateSmoking Tobacco: Never AssessedSex and Gender InformationValueDate RecordedSex Assigned at BirthNot on fileLegal Sex Male02/04/2023 7:00 PM EDTGender IdentityNot on fileSexual OrientationNot on file Plan of Treatment Not on file Insurance
--- OUTSIDE RECORDS SUMMARY | 2025-10-11 12:36 | XMS_ITS | Clinical Summary ---
Author Organization [facility] Address [address] [place] [address], [address] [place] [address] Care Team Providers Care Acid Supervisor Name Role Phone Unavailable Primary Care Provider Unavailabl e Allergies No known active allergies Medications No known medications Active Problems ProblemNoted DateDiagnosed KgnbBmggjwqpvq97/08/0038Jfhqucbnqgu72/08/2023hronic indwelling [place] facswzuj18/08/2023Foley catheter problem, vlfnklb6311/30/2022 Status post incision and /08/2023Scrotal wgtaoee6211/29/2022 Social History Tobacco UseTypesPacks/DayYears UsedDateSmoking Tobacco: Never AssessedSex and Gender InformationValueDate RecordedSex Assigned at BirthNot on fileLegal Sex Male01/02/2013 7:52 PM ESTGender IdentityNot on fileSexual OrientationNot on file Last Filed Vital Signs Vital SignReadingTime TakenCommentsBlood Irqowbly099/72012/01/2022 8:00 AM EST Umqws309812/01/2022 8:04 AM BKGVceffcqmqhr30.5 ??C (97.7 ??F)12/01/2022 8:00 AM ESTRespiratory Madb124212/01/2022 8:04 AM ESTOxygen Hyvouvqqls00%12/01/2022 3:43 AM ESTInhaled Oxygen Concentration--Ulzyiq40.9 kg (152 lb)11/30/2022 5:01 AM EST Djgkdx613 cm (6' 2 )11/29/2022 6:11 AM ESTBody Mass Index19.52011/29/2022 6:11 AM EST Plan of Treatment Health MaintenanceDue DateLast DoneCommentsDepression Kqobnh0704/14/1995Varicella vaccine (1 of 2 - 13+ 2-dose series)1996HIV qpaxik2704/14/1998Hepatitis C urcpav1004/14/2001DTaP/Tdap/Td vaccine (1 - Tdap)2002Hepatitis B vaccine (1 of 3 - 19+ 3-dose series)04/14/20020115Yozanq37/23/2023nnual Wellness Visit (Medicare)10/19/2023Flu vaccine (#1)06/23/2025OVID-19 Vaccine ( - season)2025HPV vaccine (No Doses Required)CompletedHepatitis A vaccineAged OutNo longer eligible based on patient's age to complete this topicHib vaccine Aged OutNo longer eligible based on patient's age to complete this topic Meningococcal (ACWY) vaccineAged OutNo longer eligible based on patient's age to complete this topicMeningococcal B vaccineAged OutNo longer eligible based on patient's age to complete this topicPneumococcal 0-49 years VaccineAged OutNo longer eligible based on patient's age to complete this topicPolio vaccineAged OutNo longer eligible based on patient's age to complete this topic Insurance Advance Directives * Full Code (Latest Code Status on File) Date ActivatedDate InactivatedComments11/29/2022 8:39 AM12/01/2022 8:58 PM
[2025-10-11] MEDS: CEFAZOLIN SODIUM 2 GM/50 ML D5W PREMIX IV (13:32)
[2025-10-11] MEDS: 0.9 % SODIUM CHLORIDE 10 ML VIAL 20 ML INJ (14:46)
[2025-10-11] MEDS: ONABOTULINUMTOXINA 200 UNIT VIAL INJ (14:47)
[2025-10-11] MEDS: IOHEXOL 300 MG/ML - 50 ML BTL INJ (14:49)
--- NOTE | 2025-10-11 15:21 | P.URON_ITS ---
Urology Surgery Operative Note Operative Note Procedure Date: 10/11/25 Time Out Performed: yes Pre-op Diagnosis: 1. Right hydronephrosis 2. Kidney stones 3. Noncompliant neurogenic bladder Post-op Diagnosis: other (1. Right hydronephrosis due to ureteral stricture 2. Noncompliant neurogenic bladder) Procedures performed: 1. Cystoscopy, Right retrograde pyelogram, ureteroscopy, stent placement 2. Right balloon dilation of ureteral stricture 3. Intravesical Botox 200 units injections Anesthesia: General-LMA (Dr. Xiong) Primary Surgeon: Karen Matias Complications: none Estimated blood loss (mL): 0 Findings: Mild narrowing, pale bulbar urethra, easily accommodates cystoscope. False passage inferior membranous urethra. Non obstructing prostate, open bladder neck. 2+ trabeculated bladder R RPG- 1 cm distal ureteral stricture to mild-moderate hydroureteronephrosis. R URS -unable to advance over wire, 15Fr x 4 cm balloon dilation. No renal stones, mildly blown out upper pole calyces, Arcenio's plaques Specimens: none Drains: 7Fr x 26 cm JJ right ureteral stent Incision: none Indications for Procedures: 40 year old male T4 paraplegic with noncompliant neurogenic bladder, chronic indwelling cota who was found to have persistent right hydroureteronephrosis and small non obstructing kidney stones. After discussion of risks/benefits of management options, he elected to proceed to the OR for cystoscopy, right RPG, ureteroscopy, possible ureteral balloon dilation, possible laser lithotripsy/stone extraction, stent placement, bladder botox injections to alleviate hydronephrosis and treat kidney stones. Risks were discussed including but not limited to bleeding, pain, infection, damage to surrounding structures, inability to treat the stone/place a stent, and need for additional procedures. The patient understands the stent is not permanent and needs to be removed or exchanged within 3 months to prevent encrustation, infection, invasive procedures and/or permanent renal damage. Detailed description of Procedure: After informed consent was obtained, the patient was brought to the operating room and transferred onto the operating table in supine position. Sequential compression devices were placed on bilateral lower extremities. The patient received the appropriate dose of preoperative IV antibiotics and general anesthesia LMA was induced. They were positioned in modified dorsolithotomy with the appropriate pressure points padded, prepped, and draped in the usual sterile fashion for this procedure. An operative safety timeout was performed confirming the patient's identity, laterality and procedure, and all present agreed to proceed. I began by inserting a 22 [place]err[place]ian rigid cystoscope with 30 degree lens into the patient's urethra and bladder without difficulty. There were no bladder tumors, lesions, stones or foreign bodies. Bilateral ureteral orifices were orthotopic and patent. I turned my attention to the right ureteral orifice and a 5- [place]erratian open-ended catheter was inserted into the ureteral orifice and dilute contrast was injected for retrograde pyelogram with findings as above. A hybrid wire was inserted into the ureter up to the renal pelvis confirmed on fluoroscopy. Next a semirigid ureteroscope was inserted along the wire, unable to advance. Attempted over the wire, again unable to advance a few mm past UO. A 15Fr x 4 cm balloon dilator was inserted over the wire to the level of stricture and dilated without difficulty. The ureteroscope was then able to be advanced alongside the wire easily, noting moderately dilated ureter. The semirigid ureteroscope was removed and a flexible ureteroscope was inserted alongside the wire up to the renal pelvis. Renoscopy was performed noting no stones. Findings as above. Pull down ureteroscopy was performed confirming no stones were in the ureter. Contrast was injected for retrograde pyelogram confirming no extravasation of contrast, filling defects or hydronephrosis. The wire was backloaded through the cystoscope and 7 Fr x 26 cm JJ ureteral stent was advanced over the wire, noting adequate curl in the renal pelvis and bladder on fluoroscopic and direct visualization. The bladder was drained and inspected one final time to ensure adequate position of stent and no undue trauma to the bladder was done. Next 27G needle was passed through the cystoscope and 200 units total of Botox diluted in 20 ml of saline was injected into the bladder, about 2 mm in depth. T his was evenly distributed throughout the bladder, 1 cc at a time, including a 1 cc flush afterwards. The ureteral orifices and blood vessels were avoided. There was adequate hemostasis at the end of the case. The cystoscope was removed and a new 20Fr 2way cota catheter was inserted over a wire into the bladder without difficulty, 10 cc in balloon (unable to place normal cota, pala tip was pr ovided prior to coude). The patient tolerated the procedure well without complication. The patient was awakened from anesthesia and sent to PACU in stable condition. Plan: Discharge home. Follow up for in-office cystoscopy, stent removal in 3 weeks. Cont routine q4week cota exchanges at home. Other Provider present: No Post Operative care instructions: See discharge instructions Attending Doc Confirm Attending Attestation: Yes Urinary Catheter Management Urinary Catheter Management Urethral: Cath placed during this visit: no
--- NOTE | 2025-10-11 16:47 | PC.NURSE ---
At discharge there was 50 ml of urine in the leg bag.
== END 2025-10-11 16:40 | disposition home or self-care (01) ==
LOC: SURGOUT 12:33
PROVIDERS: PCP Nurse Practitioner Family; Visit Provider Urology
PROC: (CPT 52287; principal; 2025-10-11 13:30)
DX: N13.1 Hydronephrosis with ureteral stricture, not elsewhere classified (principal); N31.9 Neuromuscular dysfunction of bladder, unspecified; N35.912 Unspecified bulbous urethral stricture, male; N32.89 Other specified disorders of bladder; G82.20 Paraplegia, unspecified; Z87.891 Personal history of nicotine dependence; Z99.3 Dependence on wheelchair
CPT/HCPCS: 52287; 52332; 52344; 36415; 74420; J0585; J0690; J1100; J2003; J2371; J2405; J2704; J3010; Q9967